=== PATIENT | female | born 1940 | race Caucasian/White ===

== ENCOUNTER 2021-05-22 16:26 | Inpatient (IN) | payer MEDICARE, BC, SELFPAY ==
[2021-05-22] VITALS (7 sets, daily range): BP systolic 147–159; BP diastolic 62–86; PULSE 79–107; RESP 14–20; TEMP 36.1–37.6; O2SAT 97–100; BMI 24.0
--- NOTE | ~2021-05-22 | CT_ITS ---
EXAMINATION: CT brain wo con DATE: 05/22/2021 17:14 INDICATION: Tongue swelling. Writing difficulties. TECHNIQUE: Computed tomography (CT) of the head was performed without intravenous contrast. The dose- length product was 605.33 mGy-cm. Automated exposure control and iterative reconstruction technique w ere employed. COMPARISON: CT dated 10/08/2009 FINDINGS: Mild atrophy. There are scattered moderate periventricular and subcortical white matter kim nges, most likely related to small vessel ischemic disease (microangiopathy). No acute intracranial h emorrhage, infarction, mass or mass effect. No ventriculomegaly or midline shift. Basilar cisterns ar e patent. Paranasal sinuses and mastoids are pneumatized. No depressed skull fractures. Small exostos is originating from the frontal skull. Small chronic right frontal lobe infarction. IMPRESSION: 1. No acute intracranial abnormality. 2: Chronic age-related findings. 3: Chronic right frontal lobe infarction. Reviewed, dictated and finalized at location A.
--- NOTE | ~2021-05-22 | MR_ITS ---
EXAMINATION: MR brain/brain stem wo/w con DATE: 05/23/2021 13:46 INDICATION: Transient ischemic attack. Slurred speech. Right hand weakness. TECHNIQUE: Magnetic resonance imaging (MRI) of the brain and brainstem was performed without and with 10 mL MultiHance intravenous contrast. Sequences included sagittal and axial T1-weighted FSE, axial diffusion-weighted FS EPI, axial T2*-weighted GRE, axial T2-weighted FLAIR Propeller, and axial T2-we ighted Propeller. Postcontrast sequences included axial and coronal T1-weighted FSE. Apparent diffusi on coefficient (ADC) maps were created. COMPARISON: Head CT 05/22/2021 FINDINGS: There is an acute infarct involving the left basal ganglia and internal capsule. There are scattered areas of nonspecific increased T2-weighted signal intensity in the cerebral white matter, p ons, and deep rowley nuclei. There is a small area of cystic encephalomalacia involving the right front al lobe deep white matter. The ventricles are normal in size. There is mild mucosal thickening in the ethmoid sinuses. There are likely changes of ocular lens replacement surgeries. The mastoid air cell s are normal. IMPRESSION: 1. Acute infarct involving the left basal ganglia and left internal capsule. 2. Small area of chronic cystic encephalomalacia involving right frontal lobe deep white matter. 3. Moderate nonspecific cerebral white matter disease and disease of the renea and deep rowley nuclei, w hich likely represents chronic small vessel ischemic disease. Reviewed, dictated and finalized at location A. IMPRESSION: 1. Acute infarct involving the left basal ganglia and left internal capsule. 2. Small area of chronic cystic encephalomalacia involving right frontal lobe d eep white matter. 3. Moderate nonspecific cerebral white matter disease and disease of the renea a nd deep rowley nuclei, which likely represents chronic small vessel ischemic dise ase.
--- NOTE | ~2021-05-22 | XR_ITS ---
EXAMINATION: XR chest 1V 05/22/2021 17:20 INDICATION: Slurred speech. History of breast and thyroid cancer. PROCEDURE: AP view of the chest COMPARISON: No prior studies for comparison. FINDINGS: The lungs are clear. The cardiomediastinal silhouette is within normal limits. There are no pleural effusions. There is no pneumothorax suspected. IMPRESSION: 1: NO ACUTE CARDIOPULMONARY DISEASE. Reviewed, dictated and finalized at location A.
--- NOTE | ~2021-05-22 | US_ITS ---
EXAMINATION: US carotid duplex BI DATE: 05/23/2021 14:08 INDICATION: Expressive aphasia. TECHNIQUE: Grayscale, color Doppler, and pulsed Doppler images of the cervical carotid arteries were obtained. The degree of vessel stenosis is placed in one of the following categories: normal, <50%, 5 0-69%, >=70% but less than near-occlusion, near-occlusion, or total occlusion. Note that percent sten osis relative to normal distal artery lumen diameter is indirectly measured from velocity measurement s as described by Lowell, et al. Radiology 2003; 229:340-346. COMPARISON: None. FINDINGS: RIGHT: The right common carotid artery (CCA) peak systolic velocity (PSV) is 102 cm/s. The right internal ca rotid artery (ICA) PSV is 83 cm/s. The right ICA end-diastolic velocity (EDV) is 26 cm/s. The right I CA/CCA PSV ratio is 0.8. Grayscale and color Doppler images yield an estimate of <50% diameter reduct ion from plaque in the ICA. There is antegrade flow in the right vertebral artery. LEFT: The left CCA PSV is 110 cm/s. The left ICA PSV is 84 cm/s. The left ICA EDV is 26 cm/s. The left ICA/ CCA PSV ratio is 0.8. Grayscale and color Doppler images yield an estimate of <50% diameter reduction from plaque in the ICA. There is antegrade flow in the left vertebral artery. IMPRESSION: 1. <50% stenosis in the right internal carotid artery. 2. <50% stenosis in the left internal carotid artery. Reviewed, dictated and finalized at location A.
--- NOTE | 2021-05-22 16:39 | ECG_ITS ---
Measurements Intervals [place] Rate: 100 P: 27 RI: 132 QRS: -18 QRSD: 94 T: 67 QT: 354 QTc: 458 Interpretive Statements SINUS TACHYCARDIA DELAYED PRECORDIAL R/S TRANSITION BASELINE ARTIFACT- I, II, III, AVR, AVL, AVF ABNORMAL ECG Electronically Signed On 05-22-2021 17:47:28 CDT by Jonas Rollins D.O.
[2021-05-22 17:00] LABS: Basophils Absolute Auto 0.1 K/mm3 (0.0-0.1); Basophils Percent Auto 0.5 % (0.2-1.2); Eosinophils Absolute Auto 0.3 K/mm3 (0-0.3); Eosinophils Percent Auto 3.2 % (0-4.4); Hematocrit 40.6 % (37.0-47.0); Hemoglobin 13.3 g/dL (12.0-15.0); Immature Granulocyte Absolute 0.03 K/mm3 (0.00-0.031); Immature Granulocyte Percent A 0.3 % (0-0.5); Lymphocytes Absolute Auto 3.77 K/mm3 (0.9-3.2); Lymphocytes Percent Auto 38.4 % (18.3-44.2); Mean Corpuscular HGB Conc 32.8 g/dl (32-36); Mean Corpuscular Hemoglobin 29.7 pg (26-34); Mean Corpuscular Volume 90.6 fl (80-100); Monocytes Absolute Auto 0.9 K/mm3 (0.1-0.6); Monocytes Percent Auto 9.2 % (2.6-8.5); Neutrophils Absolute Auto 4.8 K/mm3 (1.3-6.7); Neutrophils Percent Auto 48.4 % (45.5-73.1); Platelet Count Result 257 k/mm3 (150-375); Red Blood Count 4.48 M/mm3 (4.2-5.4); Red Cell Distribution Width 13.8 % (11.5-14.5); White Blood Count 9.8 K/mm3 (4.5-10.0)
[2021-05-22 17:09] LABS: Partial Thromboplastin Time 25.4 SECONDS (22.3-36.8); Prothrombin Time 13.2 Seconds (11.1-14.7)
--- NOTE | 2021-05-22 17:10 | PC.NURSE ---
Pt to CT scan at this time.
[2021-05-22 17:13] LABS: Anion Gap 10 mmol/L (8-16); Blood Urea Nitrogen 18 mg/dL (7-17); Calcium 9.9 mg/dL (8.4-10.2); Carbon Dioxide 25 mmol/L (22-30); Chloride 102 mmol/L (98-107); Estimated CRCL calculation 36 ml/min; Estimated Glomerular Filt Rate > 60; Glucose 127 mg/dL (65-105); Potassium 3.9 mmol/L (3.4-5.0); Sodium 137 mmol/L (137-145)
[2021-05-22 17:25] LABS: Troponin I < 0.012 ng/mL (0.000-0.034)
[2021-05-22 17:27] LABS: Glucose Point of Care 137 mg/dl (65-105)
--- NOTE | 2021-05-22 21:03 | ED.GENADULT ---
HPI - General Adult General Chief complaint: Neuro Symptoms/Deficit Stated complaint: slurred speech Time Seen by Provider: 05/22/21 20:50 Source: patient, family and RN notes reviewed Mode of arrival: ambulatory Limitations: no limitations History of Present Illness HPI narrative: Patient 80 years old white female presents to the ED with slurred speech, and trouble to manage right hand. Patient lives alone, her [id number] noticed that the patient have slurred speech while talking to her on the phone last night. Patient woke up this morning and felt like her tongue is a swollen, unable to articulate words, few hours later patient tried to sign some papers and noticed that her signature is weird . Currently patient is back to normal, denying any focal neuro deficits, headache, nausea, vomiting, fever, chills. Patient is fully vaccinated for COVID-19. Patient on baby aspirin once a day Related Data Allergies Allergy/AdvReac Type Severity Reaction Status Date / Time ibuprofen Allergy Severe FACIAL Verified 07/18/17 11:18 SWELLING mold Allergy Severe CARRIES Verified 07/18/17 11:18 EPIPEN diclofenac Allergy Intermediate Itching Verified 07/18/17 11:18 codeine Allergy Mild Verified 07/18/17 11:18 Review of Systems Review of Systems: Narrative: CONSTITUTIONAL: Denies fever, chills, or sweats. EYES: Denies visual changes, redness, or discharge. ENT: Denies rhinorrhea, congestion, sore throat, or otalgia. CARDIOVASCULAR: Denies chest pain, palpitations, or edema. RESPIRATORY: Denies cough or dyspnea. GASTROINTESTINAL: Denies abdominal pain, nausea, vomiting, or diarrhea. GENITOURINARY: Denies dysuria or hematuria. SKIN: Denies rash or itching. MUSCULOSKELETAL: Denies back pain, joint pain, or myalgia. NEUROLOGIC: Denies headache, numbness, or weakness. PSYCHIATRIC: Denies anxiety or depression. Exam Narrative: Exam Narrative: General appearance: Well-developed, well-nourished Skin: Normal color Head: Normocephalic, nontraumatic Eyes: Clear conjunctiva ENT: Oropharynx normal, ears normal, nose normal Neck: Supple, nontender Chest and respiratory: Airway patent, no respiratory distress, no accessory muscle use Heart: Regular rate/rhythm Abdomen: Soft, nontender, no organomegaly, quiet bowel sounds Vascular: Normal peripheral pulses, normal capillary refill. Musculoskeletal: Normal range of motion, nontender back Neurologic: Alert and oriented ?3, [employer]PERATOR is normal as tested, no gross motor deficit Course Course Emergency Course: Resolved, stable Vital Signs Vital signs: Vital Signs Temperature 37.6 C 05/22/21 16:30 Pulse Rate 107 H 05/22/21 16:30 Respiratory Rate 16 05/22/21 16:30 Blood Pressure 159/86 H 05/22/21 16:30 Pulse Oximetry 100 05/22/21 16:30 Temperature 37.6 C 05/22/21 16:30 Pulse Rate 89 05/22/21 19:16 Respiratory Rate 14 05/22/21 19:16 Blood Pressure 150/70 H 05/22/21 19:16 Pulse Oximetry 97 05/22/21 17:26 Medical Decision Making MDM Narrative Medical decision making narrative: TIA is my concern. Labs, CT head, chest x-ray, EKG ordered. Further plan to follow Differential Diagnosis Differential Diagnosis: TIA, CVA Vital Signs Vital Signs: Vital Signs Temperature 37.6 C 05/22/21 16:30 Pulse Rate 107 H 05/22/21 16:30 Respiratory Rate 16 05/22/21 16:30 Blood Pressure 159/86 H 05/22/21 16:30 Pulse Oximetry 100 05/22/21 16:30 Temperature 37.6 C 05/22/21 16:30 Pulse Rate 89 05/22/21 19:16 Respiratory Rate 14 05/22/21 19:16 Blood Pressure 150/70 H 05/22/21 19:16 Pulse Oximetry 97 05/22/21 17:26 Lab Data Result diagrams: 05/22/21 16:45
[2021-05-22] MEDS: ASPIRIN 81 MG CHEWABLE TABLET 324 MG PO (21:55)
--- NOTE | 2021-05-22 22:20 | ADMGEN ---
This patient, Grisel No, was admitted to Medical Room 344-01. Patient/family oriented to hospital policies and general routines including ID bracelet, bed and alarms, visiting hours, pain management, procedures, bathroom and other care routines, personal items, smoking policy, room service/diet, and visiting hours. Information on how to activate the Rapid Response Team has been discussed. Patient/Family are encouraged to report perceived risks to care and to ask questions if they do not understand what they are told or what they should do.
[2021-05-23] VITALS (7 sets, daily range): BP systolic 148–155; BP diastolic 64; PULSE 70–90; RESP 16; TEMP 36.1; O2SAT 97–99
--- NOTE | 2021-05-23 | ECHO_ITS ---
Patient Info Name: Grisel No Age: 80 years : 1940 Gender: Female Ht: 62 in Wt: 131 lbs BSA: 1.62 m2 HR: 80 bpm BP: 148 / 64 mmHg Heart Rhythm: Sinus Rhythm Technical Quality: Good Exam Date: 05/23/2021 9:41 AM Exam Location: [facility] Pulmonary Exam Room: 344 Patient Status: Inpatient Admit Date: 05/22/2021 Staff Ordering Physician: Belkis Correa PA-C Zoo Director: Katharina Israel RDCS Attending Provider: Belkis Correa PA-C Referring Physician: Madeline SIMS; Exam Type: CA echo doppler w bubble study Study Info Indications - tia symptoms Complete two-dimensional, color flow and Doppler transthoracic echocardiogram is performed with agitated saline. Contrast/Agitated Saline Contrast/Ag. Saline: Agitated Saline Amount: 20.00 ml Administered By: Farrah Avery RN Existing IV Access: Yes IV Access Condition: patent with no signs of infiltration Summary 1. Left ventricular chamber size, wall thickness, systolic are normal with no regional wall motion abnormalities with an estimated ejection fraction of 60-65%. Grade 1 diastolic dysfunction is present. 2. Mild pulmonary hypertension, estimated pulmonary arterial systolic pressure is 38 mmHg. 3. Bubble study shows no evidence of intracardiac shunt during normal respiration and Valsalva maneuver. 4. No significant valve disease. 5. Normal sinus rhythm. Left Ventricle Left ventricular chamber dimension is normal. Left ventricular systolic function is normal, estimated at 60-65%. There is no increased left ventricular wall thickness. Left ventricular septal wall motion is normal. The left ventricular diastolic function is grade I diastolic dysfunction. Left ventricular chamber size, wall thickness, systolic are normal with no regional wall motion abnormalities with an estimated ejection fraction of 60-65%. Grade 1 diastolic dysfunction is present. Right Ventricle Right ventricular chamber dimension is normal. Right ventricular systolic function is normal. Left Atria Left atrial chamber dimension is mildly enlarged. Right Atria Right atrial chamber dimension is normal. Aortic Valve The aortic valve is trileaflet. There is no aortic valve sclerosis. There is no aortic valve stenosis. There is no aortic valve regurgitation. Pulmonic Valve The pulmonic valve is normal. There is no pulmonic valve stenosis. There is trace pulmonic regurgitation. Mitral Valve The mitral valve has normal leaflets. There is no mitral valve stenosis. There is trace mitral valve regurgitation. Tricuspid Valve The tricuspid valve leaflets are normal. There is no significant tricuspid valve stenosis. There is trace tricuspid valve regurgitation. Mild pulmonary hypertension, estimated pulmonary arterial systolic pressure is 38 mmHg. Pericardium/Pleural The pericardium appears normal. There is no pericardial effusion. Inferior Vena Cava Normal inferior vena cava with >50% collapse upon inspiration consistent with Empty right atrial pressure, 10 mmHg. Aorta The aortic root size at the sinus of Valsalva is normal. The prox ascending aorta size is normal. Left Ventricular Outflow Tract Name Value Normal LVOT 2D
[2021-05-23] MEDS: LEVOTHYROXINE SODIUM 100 MCG TABLET PO (05:54)
[2021-05-23] MEDS: LORATADINE 10 MG TABLET PO (09:00)
[2021-05-23] MEDS: ATORVASTATIN 10 MG TABLET PO (09:00)
[2021-05-23] MEDS: ASPIRIN 81 MG ENTERIC TABLET PO (09:00)
[2021-05-23] MEDS: lisinopriL 20 MG TABLET PO (09:00)
[2021-05-23] MEDS: FLUTICASONE PROPIONATE 0.05% NA SPR 16 GM BTL (*BKC) 2 SPRAY NASAL (09:00)
--- NOTE | 2021-05-23 09:34 | PC.NURSE ---
message left at [facility] medical records to inquire about procedures to see if they are MRI compatible
[2021-05-23 12:10] LABS: Cholesterol 128 mg/dL (0-200); HDL Direct 40 mg/dL; Triglycerides 114 mg/dL (<150)
[2021-05-23 12:21] LABS: LDL Cholesterol Direct 62 mg/dL
--- NOTE | 2021-05-23 16:53 | PM.SD2 ---
Same Day Admit/Disch: HPI History of Present Illness Chief complaint: TIA Narrative: Grisel No is a 80 year old female with a history of dyslipidemia, thyroid cancer status post resection in on levothyroxine, hypertension, who presented to the emergency room with symptoms of slurred speech, unable to articulate words, and noticed that her signature was off while signing papers. she states her [id number] in a noticed her slurred speech on 05/21/2021 evening while they were on the phone. She went to bed without any concerns. When she woke up, she had noticed some trouble articulating certain words in a few hours later she was sign some papers and noticed her signature was off. She came to the ER for further evaluation workup. Initial vitals showed she was afebrile, slightly tachycardic at 107 per, respiratory rate 16, blood pressure 159/86, normal oxygenation 100% on room air. Initial labs showed normal CBC with differential, normal coag panel, normal BMP other than slightly elevated glucose at 127, negative troponin. CT head showed no acute intracranial abnormality, chronic age-related findings, chronic right frontal lobe Infarction. Chest x-ray showed no acute cardiopulmonary disease. the patient was admitted into the hospital for further workup and evaluation of possible stroke with an echocardiogram, MRI, telemetry monitoring and carotid Dopplers. The patient's MRI showed Acute infarct involving the left basal ganglia and left internal capsule. Small area of chronic cystic encephalomalacia involving right frontal lobe deep white matter. Moderate nonspecific cerebral white matter disease and disease of the renea and deep rowley nuclei, which likely represents chronic small vessel ischemic disease. carotid Doppler ultrasound showed less than 50% stenosis of bilateral internal carotid arteries. Echocardiogram showed normal EF 60-65%, grade 1 diastolic dysfunction, mild pulmonary hypertension, bubble study shows no evidence of intracardiac shunt and no significant valve disease. Telemetry showed normal sinus rhythm with a heart rate of 78 beats per minute, 3 alarms showing a tachycardic episode, no acute arrhythmia noted. Patient's lipid panel was normal. The patient was seen by occupational therapy who discharged her since she was at her baseline, patient still felt like her signature was off. Speech therapy evaluated the patient and found to have mild dysarthria characterized as mild labial/ lingual weakness not observed during oral motor movements but discovered during rapid repetition of speech sounds. due to acute stroke I continued the patient's baby aspirin as started her on Plavix for 28 days. I called her primary care provider Dr Shira Hall who will continue follow the patient up in a week of discharge and told him that after 28 days of Plavix he will have to decide which monotherapy to continue. Since she was on atorvastatin 10 mg she will be switched to 40 mg high dose due to acute stroke. Explained that she may need a Holter monitor to rule out any arrhythmia. he understands and agrees with the plan all questions answered. I also ordered speech therapy as an outpatient for her to follow-up to continue working on the weakness after her stroke. The patient understands and agrees with the plan all questions answered. She is discharged in stable condition. PMFSH Past Medical History Medical History (Updated 05/24/21 @ 08:12 by Belkis Correa PA-C) HLD (hyperlipidemia) HX: breast cancer Hypothyroidism Osteoporosis Seasonal allergies Thyroid cancer Family History Family History Father Lung cancer Heart disease Sibling Heart attack Son Lymphoma, Onset Age: 31 Mother Heart attack Cerebrovascular accident Social History Social History (Updated 05/24/21 @ 08:12 by Belkis Correa PA-C) Smoking status: N
== END 2021-05-23 19:36 | disposition home or self-care (01) | DRG 66 ==
LOC: ANHED 21:08 → ANH3MED 22:01
PROVIDERS: Admitting Provider Internal Medicine; Emergency Provider Emergency Medicine; PCP Family Medicine Sports Medicine; Visit Provider Physician Assistant
DX: I63.9 Cerebral infarction, unspecified (principal); R47.81 Slurred speech; R47.1 Dysarthria and anarthria; R29.700 NIHSS score 0; E78.5 Hyperlipidemia, unspecified; I10 Essential (primary) hypertension; E03.9 Hypothyroidism, unspecified; M81.0 Age-related osteoporosis without current pathological fracture; Z85.850 Personal history of malignant neoplasm of thyroid; Z85.3 Personal history of malignant neoplasm of breast
CPT/HCPCS: 36415; 70450; 70553; 71045; 80048; 80061; 82948; 84484; 85025; 85610; 85730; 92523; 93005; 93306; 93880; 96375; 99285; A9270; A9577

== ENCOUNTER 2021-06-03 08:49 | Emergency (ER) | payer BC, SELFPAY ==
--- NOTE | ~2021-06-03 | CT_ITS ---
EXAMINATION: CT chest abdomen pelvis w con DATE: 06/03/2021 10:18 INDICATION: Leukocytosis, GI bleeding TECHNIQUE: Transaxial computed tomographic images of the chest, abdomen, and pelvis were obtained aft er the administration of 100 cc of Omnipaque 350 intravenous contrast. The dose-length product (DLP) was 305.15 mGy-cm. Automated exposure control and iterative reconstruction technique were employed. COMPARISON: None FINDINGS: CHEST CT: There are scattered 1 to 2 mm nodules throughout the lungs. No focal airspace opacity is identified. There is no pleural effusion or pneumothorax. No pathologically enlarged thoracic lymph nodes are tracey ntified. The heart size is normal. Surgical changes in the left breast are consistent with treatment for breast cancer. 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 There is mild thoracic spondylosis. ABDOMEN/PELVIS CT: There is circumferential wall thickening of the descending and proximal sigmoid colon. The liver, spl een, pancreas, gallbladder, and adrenal glands are normal. The kidneys are unremarkable. No pathologi gold enlarged abdominal or pelvic lymph nodes are identified. There is no free intraperitoneal gas o r evidence of bowel obstruction. There is calcified atherosclerosis of the aorta and many of the othe r arteries. There is mild lumbar spondylosis. IMPRESSION: 1. Findings consistent with acute colitis of the descending and proximal sigmoid colon. 2. No acute findings in the chest. Reviewed, dictated and finalized at location A. IMPRESSION: 1. Findings consistent with acute colitis of the descending and proximal sigmoi d colon. 2. No acute findings in the chest.
[2021-06-03 08:53] VITALS: BP 162/81; PULSE 85; RESP 16; O2SAT 100
--- NOTE | 2021-06-03 09:09 | ED.GIBLEED ---
HPI - GI Bleed General Chief complaint: GI Bleed Stated complaint: BLOOD IN STOOL Time Seen by Provider: 06/03/21 08:51 History of Present Illness HPI Narrative: 80 yo female presents from home for Rectal bleeding. She reports that she had cramping abdominal pain and diarrhea starting last night. Overnight the diarrhea became grossly bloody. This morning the pain and diarrhea seems to have subsided, but she continues to pass a small amount of blood per rectum when she passed gas. She denies any additional symptoms. She was started on plavix recent for a stroke/TIA. Related Data Home Medications Medication Instructions Recorded Confirmed Baby Aspirin 81 mg PO DAILY 05/22/21 05/22/21 Osteo Bi-Flex 1 tablet PO DAILY 05/22/21 05/22/21 Zyrtec 10 mg PO DAILY 05/22/21 05/22/21 fluticasone propionate 2 spray INTRANASAL DAILY 05/22/21 05/22/21 levothyroxine 100 mcg PO DAILY 05/22/21 05/22/21 lisinopril 20 mg PO DAILY 05/22/21 05/22/21 metoprolol succinate 50 mg PO HS 05/22/21 05/22/21 Allergies Allergy/AdvReac Type Severity Reaction Status Date / Time ibuprofen Allergy Severe FACIAL Verified 06/03/21 09:00 SWELLING mold Allergy Severe CARRIES Verified 06/03/21 09:00 EPIPEN diclofenac Allergy Intermediate Itching Verified 06/03/21 09:00 codeine AdvReac Mild Headache Verified 06/03/21 09:00 Review of Systems Review of Systems: All systems reviewed & are unremarkable except as noted in HPI and below Constitutional: Constitutional: Denies chills and Denies fever(s) Cardiovascular: Cardiovascular: Denies chest pain Respiratory: Respiratory: Denies dyspnea Gastrointestinal: Gastrointestinal: Reports abdominal pain, Reports diarrhea, Denies nausea and Denies vomiting Genitourinary: Genitourinary: Denies hematuria and Denies dysuria Musculoskeletal: Musculoskeletal: Denies back pain Neurologic: Denies confusion, Denies dizziness, Denies numbness and Denies weakness [facility] Past Medical History Medical History HLD (hyperlipidemia) HX: breast cancer Hypothyroidism Osteoporosis Seasonal allergies Thyroid cancer Family History Family History Father Lung cancer Heart disease Sibling Heart attack Son Lymphoma, Onset Age: 31 Mother Heart attack Cerebrovascular accident Social History Social History Smoking status: Never smoker Second hand tobacco smoke exposure: No Alcohol intake: current Drinks per week: 1 Substance use: never Gender identity (if verbalized by the patient): Female Spiritual care concerns: No Exam Const: General: no acute distress Orientation/consciousness: patient oriented x3 HENMT: Head: normal to inspection Neck: Neck: normal visual inspection Resp: Effort & Inspection: normal respiratory effort Auscultation: clear to auscultation bilaterally, no rales, no rhonchi and no wheezes Cardio: Jugular venous distension: no JVD Rate: regular rate Rhythm: regular rhythm Heart sounds: no murmurs GI: Inspection: non-distended GI Palp: Yes Soft to palpation and No Tenderness to palpation present (GI) Skin: General skin exam: normal color Neuro: General: patient oriented x3 and moves all extremities Speech: normal speech Extrem: General: normal to inspection and no edema Psych: Appearance: well kempt Affect: normal affect Course Vital Signs Vital signs: Vital Signs Pulse Rate 85 06/03/21 08:53 Respiratory Rate 16 06/03/21 08:53 Blood Pressure 162/81 H 06/03/21 08:53 Pulse Oximetry 100 06/03/21 08:53 Pulse Rate 84 06/03/21 11:40 Respiratory Rate 14 06/03/21 11:40 Blood Pressure 131/73 06/03/21 11:40 Pulse Oximetry 99 06/03/21 11:40 MDM - GI Bleed MDM Narrative Medical decision making narrative: H/H stable. Symptoms nearly completely resolved. CT o
[2021-06-03] MEDS: PANTOPRAZOLE SODIUM IV 40 MG VIAL IV PUSH (09:21)
[2021-06-03 09:39] LABS: Alanine Aminotransferase 27 U/L (4-35); Albumin Level 4.3 g/dL (3.5-5.1); Alkaline Phosphatase 74 U/L (38-126); Anion Gap 10 mmol/L (8-16); Aspartate Amino Transferase 35 U/L (14-36); Blood Urea Nitrogen 12 mg/dL (7-17); Calcium 9.4 mg/dL (8.4-10.2); Carbon Dioxide 24 mmol/L (22-30); Chloride 104 mmol/L (98-107); Estimated CRCL calculation 36 ml/min; Estimated Glomerular Filt Rate > 60; Glucose 158 mg/dL (65-110); Lipase 64 U/L (23-300); Potassium 3.9 mmol/L (3.4-5.0); Sodium 138 mmol/L (137-145)
[2021-06-03 09:47] LABS: Basophils Absolute Auto 0.1 K/mm3 (0.0-0.1); Basophils Percent Auto 0.4 % (0.2-1.2); Eosinophils Absolute Auto 0.1 K/mm3 (0-0.3); Eosinophils Percent Auto 0.7 % (0-4.4); Hematocrit 41.6 % (37.0-47.0); Hemoglobin 13.2 g/dL (12.0-15.0); Immature Granulocyte Absolute 0.09 K/mm3 (0.00-0.031); Immature Granulocyte Percent A 0.5 % (0-0.5); Lymphocytes Absolute Auto 2.62 K/mm3 (0.9-3.2); Lymphocytes Percent Auto 15.2 % (18.3-44.2); Mean Corpuscular HGB Conc 31.7 g/dl (32-36); Mean Corpuscular Hemoglobin 29.3 pg (26-34); Mean Corpuscular Volume 92.4 fl (80-100); Mean Platelet Volume 12.1 fl (7.4-10.4); Monocytes Absolute Auto 1.4 K/mm3 (0.1-0.6); Neutrophils Percent Auto 75.2 % (45.5-73.1); Platelet Count Result 236 k/mm3 (150-375); Red Cell Distribution Width 13.4 % (11.5-14.5); White Blood Count 17.3 K/mm3 (4.5-10.0)
[2021-06-03 10:29] LABS: Prothrombin Time 12.8 Seconds (11.1-14.7)
[2021-06-03 10:30] LABS: Partial Thromboplastin Time 26.6 SECONDS (22.3-36.8)
[2021-06-03] MEDS: metroNIDAZOLE 250 MG TABLET 500 MG PO (11:09)
[2021-06-03 11:10] VITALS: BP 131/73; PULSE 90; RESP 16; O2SAT 100
[2021-06-03] MEDS: CIPROFLOXACIN 500 MG TAB PO (11:10)
[2021-06-03 11:40] VITALS: BP 131/73; PULSE 84; RESP 14; O2SAT 99
== END 2021-06-03 11:35 | disposition home or self-care (01) ==
PROVIDERS: Emergency Provider Emergency Medicine; PCP Family Medicine Sports Medicine
DX: K52.9 Noninfective gastroenteritis and colitis, unspecified (principal); E78.5 Hyperlipidemia, unspecified; E03.9 Hypothyroidism, unspecified; M81.0 Age-related osteoporosis without current pathological fracture; Z85.850 Personal history of malignant neoplasm of thyroid; Z85.3 Personal history of malignant neoplasm of breast; Z79.82 Long term (current) use of aspirin
CPT/HCPCS: 36415; 71260; 74177; 80053; 83690; 85025; 85610; 85730; 86850; 86900; 86901; 96374; 99284; A9270; C9113; Q9967

== ENCOUNTER 2021-06-20 05:24 | Observation (INO) | payer BC, SELFPAY ==
[2021-06-20] VITALS (12 sets, daily range): BP systolic 108–140; BP diastolic 48–91; PULSE 79–107; RESP 14–18; TEMP 35.7–37.3; O2SAT 96–99
--- NOTE | ~2021-06-20 | CT_ITS ---
EXAMINATION: CT abdomen pelvis w con INDICATION: Right lower abdominal pain and diarrhea TECHNIQUE: Computed tomographic images of the abdomen and pelvis were obtained after the administrati on of 100 cc of Omnipaque 350 intravenous contrast. The dose-length product (DLP) was 214.00 mGy-cm. Automated exposure control and iterative reconstruction technique were employed. COMPARISON: 06/03/2021 FINDINGS: The lung bases are clear. The heart size is normal. The liver, spleen, pancreas, gallbladde r, and adrenal glands are normal. The kidneys are unremarkable. There is calcified atherosclerosis of the aorta and many of the other arteries. No pathologically enlarged abdominal or pelvic lymph nodes are identified. There is diffuse wall thickening of the colon, worst from the splenic flexure throug h the rectum. There is mild lumbar spondylosis. There is no free intraperitoneal gas or evidence of b owel obstruction. IMPRESSION: 1. Diffuse wall thickening of the colon, worst from the splenic flexure through the rectum, consisten t with colitis. Reviewed, dictated and finalized at location A. IMPRESSION: 1. Diffuse wall thickening of the colon, worst from the splenic flexure through the rectum, consistent with colitis.
[2021-06-20 07:54] LABS: Hematocrit 38.1 % (37.0-47.0); Hemoglobin 12.4 g/dL (12.0-15.0); Mean Corpuscular HGB Conc 32.5 g/dl (32-36); Mean Corpuscular Hemoglobin 29.5 pg (26-34); Mean Corpuscular Volume 90.7 fl (80-100); Mean Platelet Volume 11.1 fl (7.4-10.4); Platelet Count Result 215 k/mm3 (150-375); Red Cell Distribution Width 13.9 % (11.5-14.5); White Blood Count 16.8 K/mm3 (4.5-10.0)
--- NOTE | 2021-06-20 08:09 | ED.NAVMDI ---
HPI - Nausea/Vomiting/Diarrhea General Chief complaint: Nausea/Vomiting/Diarrhea Stated complaint: diarrhea, hx of colitis Time Seen by Provider: 06/20/21 07:08 Source: patient, RN notes reviewed and old records reviewed Mode of arrival: ambulatory Limitations: no limitations History of Present Illness HPI Narrative: This is a 80 year old female who presents for evaluation of diarrhea. She states 2-3 weeks ago she developed bloody stools so she came to [facility], and she was diagnosed with colitis. She was discharged home on Cipro and Flagyl. She states her bloody stools have resolved but 2 days after completing her antibiotics her stools became loose again. Over the past 2 days, she reports she is having multiple episodes of watery, nonbloody stools. She reports up to 10 episodes of diarrhea per day. She took Imodium prior to arrival so she is not having diarrhea currently. She denies abdominal pain,fever or chills. She does reports weakness with nausea and vomiting. She denies sick contacts. Her PCP has referred patient to GI at [place], but her appointment is not until July. She reports having an unremarkable colonoscopy 5 years ago. Related Data Home Medications Medication Instructions Recorded Confirmed Baby Aspirin 81 mg PO DAILY 05/22/21 06/20/21 Osteo Bi-Flex 1 tablet PO DAILY 05/22/21 06/20/21 fluticasone propionate 2 spray INTRANASAL DAILY 05/22/21 06/20/21 levothyroxine 100 mcg PO DAILY 05/22/21 06/20/21 lisinopril 20 mg PO DAILY 05/22/21 06/20/21 metoprolol succinate 50 mg PO HS 05/22/21 06/20/21 Norvasc 5 mg PO DAILY 06/20/21 06/20/21 Allergies Allergy/AdvReac Type Severity Reaction Status Date / Time ibuprofen Allergy Severe FACIAL Verified 06/03/21 09:00 SWELLING mold Allergy Severe CARRIES Verified 06/03/21 09:00 EPIPEN diclofenac Allergy Intermediate Itching Verified 06/03/21 09:00 codeine AdvReac Mild Headache Verified 06/03/21 09:00 Review of Systems Review of Systems: All systems reviewed & are unremarkable except as noted in HPI and below PMFSH Past Medical History Medical History (Updated 06/20/21 @ 16:36 by Kaylie Lindsay MD) HLD (hyperlipidemia) HX: breast cancer Hypothyroidism Osteoporosis Seasonal allergies Thyroid cancer Surgical History Surgical History (Updated 06/20/21 @ 08:14 by Kaylie Lindsay MD) H/O mastectomy Family History Family History Father Lung cancer Heart disease Sibling Heart attack Son Lymphoma, Onset Age: 31 Mother Heart attack Cerebrovascular accident Social History Social History Smoking status: Never smoker Second hand tobacco smoke exposure: No Alcohol intake: never Drinks per week: 1 Substance use: never Gender identity (if verbalized by the patient): Female Spiritual care concerns: No Exam Const: General: alert Eyes: EOM: EOMs intact bilaterally Resp: Effort & Inspection: normal respiratory effort and no retractions Auscultation: clear to auscultation bilaterally Cardio: Rate: regular rate Rhythm: regular rhythm Heart sounds: no murmurs GI: GI Palp: Yes Soft to palpation, Yes Tenderness to palpation present (GI) (RLQ), No Guarding due to palpation present (GI) and No Rigid due to palpation Auscultation: normal bowel sounds Skin: General skin exam: normal color Rashes: no rashes Neuro: General: patient oriented x3, moves all extremities and CN's II-XI intact bilaterally Psych: Mental Status: mental status grossly normal Affect: normal affect Course Consultations Consultation #1: I Discussed case with DR. Lopez who accepts patient to hospitalist service. Agrees with antibiotics zosyn with oral vanc. No further recommendations. Date: 06/20/21 Time: 10:20 Vital Signs Vital signs: Vital Signs Temperature 99.1 F 06/20/21 05:29 Pulse Rate 107 H 08/0
[2021-06-20 08:11] LABS: Band Neutrophils Percent 7 % (0-6); Lymphocytes Absolute Manual 3.19 K/mm3 (1.1-4.5); Monocytes Absolute Manual 1.34 K/mm3 (0.1-0.90); Monocytes Percent Manual 8 % (3-9); Neutrophils Absolute Manual 12.26 K/mm3 (1.7-7.2); Neutrophils Percent Manual 66 % (46-73); Platelet Estimate Adequate (Adequate); Total Cells Counted 100
[2021-06-20 08:58] LABS: Add Urine Microscopic? YES; Appearance Urine Cloudy (Clear); Bacteria Urine Trace /hpf; Bilirubin Urine 1+ (Negative); Blood Urine Negative (Negative); Color Urine Amber (Yellow); Glucose Urine UA Negative (Negative); Hyaline Casts Urine 50+ /lpf; Ketones Urine Trace mg/dL (Negative); Leukocyte Esterase Ur Negative LEU/UL (Negative); Mucus Urine Moderate /lpf; Nitrate Urine Negative (Negative); Protein Urine 1+ mg/dL (Negative); RBC Urine 0-2 /hpf (0-2); Specific Grav Ur 1.021 (1.001-1.035); Squamous Epithelial Cell Urine Few /hpf (Few); Urobilinogen Urine Negative mg/dL (<2.0)
[2021-06-20 08:58] LABS: Alanine Aminotransferase 23 U/L (4-35); Albumin Level 3.5 g/dL (3.5-5.1); Alkaline Phosphatase 55 U/L (38-126); Anion Gap 13 mmol/L (8-16); Aspartate Amino Transferase 22 U/L (14-36); Bilirubin,Total 0.8 mg/dL (0.2-1.3); Blood Urea Nitrogen 14 mg/dL (7-17); Calcium 8.7 mg/dL (8.4-10.2); Carbon Dioxide 22 mmol/L (22-30); Chloride 98 mmol/L (98-107); Estimated CRCL calculation 27 ml/min; Estimated Glomerular Filt Rate 43; Glucose 124 mg/dL (65-110); Potassium 3.7 mmol/L (3.4-5.0); Sodium 133 mmol/L (137-145)
[2021-06-20 08:59] LABS: Lipase < 10 U/L (23-300)
[2021-06-20] MEDS: LACTATED RINGERS 1,000 ML 999 ML IV CONT ×2 (09:04→10:26)
[2021-06-20 10:23] LABS: Lactic Acid Reflex 2.6 mmol/L (0.7-2.1)
[2021-06-20] MEDS: VANCOMYCIN ORAL 125 MG/2.5 ML SYRUP PO ×3 (10:55→23:34)
[2021-06-20 13:08] LABS: Reflex Lactic Acid Yes or No Add Lactic
[2021-06-20] MEDS: SODIUM CHLORIDE 0.9% IV 1,000 ML 125 ML IV CONT ×2 (13:21→22:10)
[2021-06-20 13:31] LABS: Lactic Acid 1.8 mmol/L (0.7-2.1)
--- NOTE | 2021-06-20 16:22 | ADMGEN ---
This patient, Grisel No, was admitted to [address] [place] [address] Room [facility] at 1320 pm omn 06/20/21. Patient/family oriented to hospital policies and general routines including ID bracelet, bed and alarms, visiting hours, pain management, procedures, bathroom and other care routines, personal items, smoking policy, room service/diet, and visiting hours. Information on how to activate the Rapid Response Team has been discussed. Patient/Family are encouraged to report perceived risks to care and to ask questions if they do not understand what they are told or what they should do.
--- NOTE | 2021-06-20 16:26 | PM.IMHP ---
H&P: HPI History of Present Illness Date/Time: 06/20/21 16:26 Patient is 80-year-old female was recently discharged from the hospital after being treated for bloody diarrhea and was treated for colitis Patient was treated with Cipro and Flagyl, prior to discharge patient did not have any bloody stool, patient stated see completed her antibiotics 2 days ago and developed abdominal pain and diarrhea, no bloody stool, no fever or chills, complains abdominal pain and nausea, it was suspected the patient may have Colitis and patient was started Cipro and Flagyl and suspicious for C diff and started the patient on oral vancomycin, will place the patient on isolation and will monitor. Chief Complaint: abdominal pain and diarrhea Review of Systems Review of Systems: All systems reviewed & are unremarkable except as noted in HPI and below PMFSH Past Medical History Medical History (Updated 06/21/21 @ 14:02 by Ryan Lopez MD) HLD (hyperlipidemia) HX: breast cancer Hypothyroidism Osteoporosis Seasonal allergies Thyroid cancer Surgical History Surgical History (Updated 06/20/21 @ 08:14 by Kaylie Lindsay MD) H/O mastectomy Family History Family History Father Lung cancer Heart disease Sibling Heart attack Son Lymphoma, Onset Age: 31 Mother Heart attack Cerebrovascular accident Social History Social History Smoking status: Never smoker Second hand tobacco smoke exposure: No Alcohol intake: never Drinks per week: 1 Substance use: never Gender identity (if verbalized by the patient): Female Spiritual care concerns: No Meds Home Medications and Allergies Home Medications Medication Instructions Recorded Confirmed Type Baby Aspirin 81 mg PO DAILY 05/22/21 06/20/21 History Osteo Bi-Flex 1 tablet PO DAILY 05/22/21 06/20/21 History fluticasone propionate 2 spray INTRANASAL DAILY 05/22/21 06/20/21 History levothyroxine 100 mcg PO DAILY 05/22/21 06/20/21 History lisinopril 20 mg PO DAILY 05/22/21 06/20/21 History metoprolol succinate 50 mg PO HS 05/22/21 06/20/21 History atorvastatin [Lipitor] 40 mg PO DAILY #30 tablet 05/23/21 06/20/21 Rx clopidogrel [Plavix] 75 mg PO DAILY #28 tablet 05/23/21 06/20/21 Rx Norvasc 5 mg PO DAILY 06/20/21 06/20/21 History Allergies Allergy/AdvReac Type Severity Reaction Status Date / Time ibuprofen Allergy Severe FACIAL Verified 06/03/21 09:00 SWELLING mold Allergy Severe CARRIES Verified 06/03/21 09:00 EPIPEN diclofenac Allergy Intermediate Itching Verified 06/03/21 09:00 codeine AdvReac Mild Headache Verified 06/03/21 09:00 Vital Signs Vital Signs - 24 hr 06/20/21 05:29 06/20/21 09:07 06/20/21 10:19 Temperature 99.1 F Pulse Rate 107 H 81 80 Respiratory Rate 16 14 14 Blood Pressure 125/48 L 108/70 116/69 Pulse Oximetry 98 99 99 06/20/21 10:46 06/20/21 10:48 06/20/21 10:51 Temperature Pulse Rate 86 89 98 Respiratory Rate Blood Pressure 124/60 132/62 136/65 Pulse Oximetry 06/20/21 11:16 06/20/21 13:24 06/20/21 14:00 Temperature 96.2 F L 96.7 F L Pulse Rate 85 88 79 Respiratory Rate 14 18 18 Blood Pressure 117/61 138/57 L 114/49 L Pulse Oximetry 98 99 98 Exam Narrative: elderly frail Patient is comfortable, NAD HEENT: eyes are clear and none icteric LUNGS: normal respiratory efforts ABD: not distended Lower extremities: no edema SKIN: nonjaundiced Neuro: grossly intact normal speech. H&P: Results Labs Labs: Short CBC 06/20/21 Range/Units 07:48 WBC 16.8 H (4.5-10.0) K/mm3 Hgb 12.4 (12.0-15.0) g/dL Hct 38.1 (37.0-47.0) % Plt Count 215 (150-375) k/mm3 BMP 06/20/21 07:48 Sodium 133 L Potassium 3.7 Chloride 98 Carbon Dioxide 22 BUN 14 Creatinine 1.20 H Glucose 124 H Calcium 8.7 Liver Function 06/20/21 Range/Units 07:48 Tot
[2021-06-20] MEDS: METOPROLOL SUCCINATE EXT REL 50 MG TABCR PO (20:53)
[2021-06-21] MEDS: LEVOTHYROXINE SODIUM 100 MCG TABLET PO (05:15)
[2021-06-21] MEDS: VANCOMYCIN ORAL 125 MG/2.5 ML SYRUP PO (05:16)
[2021-06-21 05:19] VITALS: BP 136/61; PULSE 75; RESP 16; TEMP 36.3; O2SAT 96
[2021-06-21 06:08] LABS: Basophils Percent Auto 0.5 % (0.2-1.2); Eosinophils Absolute Auto 0.3 K/mm3 (0-0.3); Eosinophils Percent Auto 3.5 % (0-4.4); Hematocrit 31.9 % (37.0-47.0); Hemoglobin 10.1 g/dL (12.0-15.0); Immature Granulocyte Absolute 0.05 K/mm3 (0.00-0.031); Immature Granulocyte Percent A 0.6 % (0-0.5); Lymphocytes Absolute Auto 2.17 K/mm3 (0.9-3.2); Lymphocytes Percent Auto 24.7 % (18.3-44.2); Mean Corpuscular HGB Conc 31.7 g/dl (32-36); Mean Corpuscular Hemoglobin 29.5 pg (26-34); Mean Corpuscular Volume 93.3 fl (80-100); Mean Platelet Volume 11.2 fl (7.4-10.4); Monocytes Absolute Auto 0.7 K/mm3 (0.1-0.6); Monocytes Percent Auto 8.1 % (2.6-8.5); Neutrophils Absolute Auto 5.5 K/mm3 (1.3-6.7); Neutrophils Percent Auto 62.6 % (45.5-73.1); Platelet Count Result 152 k/mm3 (150-375); Red Blood Count 3.42 M/mm3 (4.2-5.4); Red Cell Distribution Width 13.8 % (11.5-14.5); White Blood Count 8.8 K/mm3 (4.5-10.0)
[2021-06-21 06:32] LABS: Alanine Aminotransferase 15 U/L (4-35); Albumin Level 2.4 g/dL (3.5-5.1); Alkaline Phosphatase 39 U/L (38-126); Anion Gap 4 mmol/L (8-16); Aspartate Amino Transferase 19 U/L (14-36); Bilirubin,Total 0.7 mg/dL (0.2-1.3); Blood Urea Nitrogen 7 mg/dL (7-17); Calcium 7.7 mg/dL (8.4-10.2); Carbon Dioxide 26 mmol/L (22-30); Chloride 107 mmol/L (98-107); Estimated CRCL calculation 36 ml/min; Estimated Glomerular Filt Rate > 60; Glucose 118 mg/dL (65-110); Magnesium 1.6 mg/dL (1.6-2.3); Potassium 3.1 mmol/L (3.4-5.0); Sodium 137 mmol/L (137-145)
[2021-06-21] MEDS: FLUTICASONE PROPIONATE 0.05% NA SPR 16 GM BTL (*BKC) 2 SPRAY NASAL (09:10)
[2021-06-21] MEDS: MAGNESIUM OXIDE 400 MG TABLET PO (09:10)
[2021-06-21] MEDS: POTASSIUM CHLORIDE 20 MEQ TABLET 40 MEQ PO (09:10)
[2021-06-21] MEDS: ATORVASTATIN 40 MG TABLET PO (09:11)
[2021-06-21] MEDS: amLODIPine BESYLATE 5 MG TABLET PO (09:11)
[2021-06-21] MEDS: lisinopriL 20 MG TABLET PO (09:12)
[2021-06-21] MEDS: ASPIRIN 81 MG CHEWABLE TABLET PO (09:12)
[2021-06-21] MEDS: CLOPIDOGREL BISULFATE 75 MG TABLET PO (09:12)
[2021-06-21] MEDS: SODIUM CHLORIDE 0.9% IV 1,000 ML 125 ML IV CONT ×3 (09:15→23:03)
[2021-06-21 11:34] VITALS: BMI 21.2
[2021-06-21 14:00] VITALS: BP 112/52; PULSE 72; RESP 18; TEMP 35.9; O2SAT 98
--- NOTE | 2021-06-21 18:12 | PM.IMPN ---
Progress Note: A&P Assessment and Plan (1) Colitis: Code(s): K52.9 - Noninfective gastroenteritis and colitis, unspecified Status: Acute Assessment and Plan: 06/21/21 18:12 Patient is 80-year-old female was recently discharged from the hospital after being treated for bloody diarrhea and was treated for colitis Patient was treated with Cipro and Flagyl, prior to discharge patient did not have any bloody stool, patient stated see completed her antibiotics 2 days ago and developed abdominal pain and diarrhea, no bloody stool, no fever or chills, complains abdominal pain and nausea, it was suspected the patient may have Colitis and patient was started Cipro and Flagyl and suspicious for C diff and started the patient on oral vancomycin, will place the patient on isolation and will monitor. 06/21 today patient C diff is negative, patient had a small bowel movement formed, patient denies any abdominal pain nausea or vomiting, but currently patient is clear liquid will advanced her diet as tolerated, if remains clinically stable will discharge the patient home tomorrow. (2) Essential hypertension: Code(s): I10 - Essential (primary) hypertension Status: Acute Assessment and Plan: will continue home regimen and monitor (3) Hypothyroidism: Code(s): E03.9 - Hypothyroidism, unspecified Status: Inactive Assessment and Plan: will continue home regimen and monitor (4) HLD (hyperlipidemia): Code(s): E78.5 - Hyperlipidemia, unspecified Status: Acute Assessment and Plan: will continue home regimen and monitor Subjective Date/time seen: 06/21/21 18:12 Patient is 80-year-old female was recently discharged from the hospital after being treated for bloody diarrhea and was treated for colitis Patient was treated with Cipro and Flagyl, prior to discharge patient did not have any bloody stool, patient stated see completed her antibiotics 2 days ago and developed abdominal pain and diarrhea, no bloody stool, no fever or chills, complains abdominal pain and nausea, it was suspected the patient may have Colitis and patient was started Cipro and Flagyl and suspicious for C diff and started the patient on oral vancomycin, will place the patient on isolation and will monitor. 06/21 today patient C diff is negative, patient had a small bowel movement formed, patient denies any abdominal pain nausea or vomiting, but currently patient is clear liquid will advanced her diet as tolerated, if remains clinically stable will discharge the patient home tomorrow. Review of Systems Review of Systems: All systems reviewed & are unremarkable except as noted in HPI and below Exam Narrative: elderly frail Patient is comfortable, NAD HEENT: eyes are clear and none icteric LUNGS: normal respiratory efforts ABD: not distended Lower extremities: no edema SKIN: nonjaundiced Neuro: grossly intact normal speech. Objective Data Vital Signs Vital Signs: Vital Signs - 24 hr 06/20/21 20:53 06/20/21 21:00 06/20/21 22:37 Temperature 97.7 F Pulse Rate 79 91 Respiratory Rate 16 Blood Pressure 140/91 H Pulse Oximetry 96 96 06/21/21 05:19 06/21/21 14:00 Temperature 97.3 F L 96.6 F L Pulse Rate 75 72 Respiratory Rate 16 18 Blood Pressure 136/61 112/52 L Pulse Oximetry 96 98 Intake/Output Intake/Output: Intake & Output 06/18/21 06/19/21 06/20/21 06/21/21 23:59 23:59 23:59 23:59 Intake Total 3890 3970 Output Total 650 1700 Balance 3240 2270 Meds/Results Medications: Active Medications Generic Name Dose Route Start Last Admin Trade Name Freq PRN Reason Stop Dose Admin Amlodipine Besylate 5 mg 06/21/21 09:00 06/21/21 09:11 Amlodipine Besylate 5 Mg Tablet PO 5 mg DAILY KIM Administration Aspirin 81 mg 06/21/21 08:00 06/21/21 09:12 Aspirin 81 Mg Chewable Tablet PO 81 mg DAILY@0800 KIM Administration Atorvastatin Calciu
[2021-06-21 20:43] VITALS: BP 111/90; PULSE 74; RESP 16; TEMP 35.6; O2SAT 98
[2021-06-21 20:44] VITALS: PULSE 74
[2021-06-21] MEDS: METOPROLOL SUCCINATE EXT REL 50 MG TABCR PO (20:44)
[2021-06-21 23:41] VITALS: O2SAT 98
[2021-06-22 05:31] VITALS: BP 145/64; PULSE 67; RESP 16; TEMP 37; O2SAT 100
[2021-06-22] MEDS: LEVOTHYROXINE SODIUM 100 MCG TABLET PO (05:43)
[2021-06-22 05:56] LABS: Hematocrit 31.9 % (37.0-47.0); Hemoglobin 9.9 g/dL (12.0-15.0); Mean Corpuscular Hemoglobin 29.2 pg (26-34); Mean Corpuscular Volume 94.1 fl (80-100); Mean Platelet Volume 11.6 fl (7.4-10.4); Platelet Count Result 174 k/mm3 (150-375); Red Blood Count 3.39 M/mm3 (4.2-5.4); Red Cell Distribution Width 13.7 % (11.5-14.5); White Blood Count 6.7 K/mm3 (4.5-10.0)
[2021-06-22 06:01] LABS: Alanine Aminotransferase 18 U/L (4-35); Albumin Level 2.4 g/dL (3.5-5.1); Alkaline Phosphatase 36 U/L (38-126); Anion Gap 6 mmol/L (8-16); Aspartate Amino Transferase 21 U/L (14-36); Bilirubin,Total 0.4 mg/dL (0.2-1.3); Calcium 7.5 mg/dL (8.4-10.2); Carbon Dioxide 23 mmol/L (22-30); Chloride 108 mmol/L (98-107); Estimated CRCL calculation 45 ml/min; Estimated Glomerular Filt Rate > 60; Glucose 103 mg/dL (65-110); Potassium 3.2 mmol/L (3.4-5.0); Sodium 137 mmol/L (137-145)
[2021-06-22] MEDS: SODIUM CHLORIDE 0.9% IV 1,000 ML 125 ML IV CONT ×2 (08:06→17:39)
[2021-06-22] MEDS: ASPIRIN 81 MG CHEWABLE TABLET PO (08:07)
[2021-06-22] MEDS: MAGNESIUM OXIDE 400 MG TABLET PO (08:08)
[2021-06-22] MEDS: lisinopriL 20 MG TABLET PO (08:08)
[2021-06-22] MEDS: CLOPIDOGREL BISULFATE 75 MG TABLET PO (08:08)
[2021-06-22] MEDS: ATORVASTATIN 40 MG TABLET PO (08:08)
[2021-06-22] MEDS: amLODIPine BESYLATE 5 MG TABLET PO (08:08)
[2021-06-22] MEDS: FLUTICASONE PROPIONATE 0.05% NA SPR 16 GM BTL (*BKC) 2 SPRAY NASAL (08:10)
[2021-06-22 08:15] VITALS: PULSE 67; RESP 16; O2SAT 100
[2021-06-22 08:28] LABS: Blood Urea Nitrogen < 2 mg/dL (7-17)
[2021-06-22 08:37] LABS: Iron 68 ug/dL (37-170)
[2021-06-22 08:46] LABS: Percent Iron Saturation 40 % (20-50)
[2021-06-22 09:54] LABS: Folic Acid > 20.0 ng/mL (2.76->20)
[2021-06-22] MEDS: POTASSIUM CHLORIDE 20 MEQ TABLET 40 MEQ PO ×2 (13:36→17:38)
[2021-06-22 14:01] VITALS: BP 138/65; PULSE 77; RESP 18; TEMP 35.8; O2SAT 98
[2021-06-22 15:26] LABS: Anion Gap 8 mmol/L (8-16); Calcium 7.6 mg/dL (8.4-10.2); Carbon Dioxide 22 mmol/L (22-30); Chloride 106 mmol/L (98-107); Estimated CRCL calculation 45 ml/min; Estimated Glomerular Filt Rate > 60; Glucose 132 mg/dL (65-110); Magnesium 1.5 mg/dL (1.6-2.3); Potassium 2.9 mmol/L (3.4-5.0); Sodium 136 mmol/L (137-145)
[2021-06-22 16:34] LABS: Blood Urea Nitrogen < 2 mg/dL (7-17)
--- NOTE | 2021-06-22 16:45 | PM.IMPN ---
Progress Note: A&P Assessment and Plan (1) Colitis: Code(s): K52.9 - Noninfective gastroenteritis and colitis, unspecified Status: Acute Assessment and Plan: 06/22/21 16:45 Patient is 80-year-old female was recently discharged from the hospital after being treated for bloody diarrhea and was treated for colitis Patient was treated with Cipro and Flagyl, prior to discharge patient did not have any bloody stool, patient stated see completed her antibiotics 2 days ago and developed abdominal pain and diarrhea, no bloody stool, no fever or chills, complains abdominal pain and nausea, it was suspected the patient may have Colitis and patient was started Cipro and Flagyl and suspicious for C diff and started the patient on oral vancomycin, will place the patient on isolation and will monitor. 06/21 today patient C diff is negative, patient had a small bowel movement formed, patient denies any abdominal pain nausea or vomiting, but currently patient is clear liquid will advanced her diet as tolerated, if remains clinically stable will discharge the patient home tomorrow. 06/22 Today patient states feeling better did have a small BM, no abdominal pain nausea or vomiting fever or chills patient potassium is low most likely depleted due to the persistent diarrhea will supplement monitor remains close to normal may discharge today. (2) Essential hypertension: Code(s): I10 - Essential (primary) hypertension Status: Acute Assessment and Plan: will continue home regimen and monitor (3) Hypothyroidism: Code(s): E03.9 - Hypothyroidism, unspecified Status: Inactive Assessment and Plan: will continue home regimen and monitor (4) HLD (hyperlipidemia): Code(s): E78.5 - Hyperlipidemia, unspecified Status: Acute Assessment and Plan: will continue home regimen and monitor Subjective Date/time seen: 06/22/21 16:45 Patient is 80-year-old female was recently discharged from the hospital after being treated for bloody diarrhea and was treated for colitis Patient was treated with Cipro and Flagyl, prior to discharge patient did not have any bloody stool, patient stated see completed her antibiotics 2 days ago and developed abdominal pain and diarrhea, no bloody stool, no fever or chills, complains abdominal pain and nausea, it was suspected the patient may have Colitis and patient was started Cipro and Flagyl and suspicious for C diff and started the patient on oral vancomycin, will place the patient on isolation and will monitor. 06/21 today patient C diff is negative, patient had a small bowel movement formed, patient denies any abdominal pain nausea or vomiting, but currently patient is clear liquid will advanced her diet as tolerated, if remains clinically stable will discharge the patient home tomorrow. 06/22 Today patient states feeling better did have a small BM, no abdominal pain nausea or vomiting fever or chills patient potassium is low most likely depleted due to the persistent diarrhea will supplement monitor remains close to normal may discharge today. Review of Systems Review of Systems: All systems reviewed & are unremarkable except as noted in HPI and below Exam Narrative: elderly frail Patient is comfortable, NAD HEENT: eyes are clear and none icteric LUNGS: normal respiratory efforts ABD: not distended Lower extremities: no edema SKIN: nonjaundiced Neuro: grossly intact normal speech. Objective Data Vital Signs Vital Signs: Vital Signs - 24 hr 06/21/21 20:43 06/21/21 20:44 06/21/21 23:41 Temperature 96.0 F L Pulse Rate 74 74 Respiratory Rate 16 Blood Pressure 111/90 Pulse Oximetry 98 98 06/22/21 05:31 06/22/21 08:15 06/22/21 14:01 Temperature 98.6 F 96.5 F L Pulse Rate 67 67 77 Respiratory Rate 16 16 18 Blood Pressure 145/64 H 138/65 Pulse Oximetry 100 100 98 Intake/Output Intake/Output: Intake & Ou
[2021-06-22 20:24] VITALS: PULSE 74
[2021-06-22] MEDS: METOPROLOL SUCCINATE EXT REL 50 MG TABCR PO (20:24)
[2021-06-22 22:00] VITALS: BP 135/80; PULSE 73; RESP 21; TEMP 36.8; O2SAT 100
[2021-06-23] MEDS: SODIUM CHLORIDE 0.9% IV 1,000 ML 125 ML IV CONT (01:58)
[2021-06-23 06:00] VITALS: BP 147/65; PULSE 65; RESP 20; TEMP 36.1; O2SAT 98
[2021-06-23] MEDS: LEVOTHYROXINE SODIUM 100 MCG TABLET PO (06:07)
[2021-06-23 06:14] LABS: Hematocrit 31.7 % (37.0-47.0); Hemoglobin 10.3 g/dL (12.0-15.0); Mean Corpuscular HGB Conc 32.5 g/dl (32-36); Mean Corpuscular Hemoglobin 29.6 pg (26-34); Mean Corpuscular Volume 91.1 fl (80-100); Mean Platelet Volume 11.3 fl (7.4-10.4); Platelet Count Result 206 k/mm3 (150-375); Red Blood Count 3.48 M/mm3 (4.2-5.4); Red Cell Distribution Width 13.5 % (11.5-14.5); White Blood Count 6.6 K/mm3 (4.5-10.0)
[2021-06-23 06:29] LABS: Alanine Aminotransferase 19 U/L (4-35); Albumin Level 2.6 g/dL (3.5-5.1); Alkaline Phosphatase 41 U/L (38-126); Anion Gap 6 mmol/L (8-16); Aspartate Amino Transferase 21 U/L (14-36); Bilirubin,Total 0.4 mg/dL (0.2-1.3); Calcium 7.7 mg/dL (8.4-10.2); Carbon Dioxide 23 mmol/L (22-30); Chloride 108 mmol/L (98-107); Estimated CRCL calculation 45 ml/min; Estimated Glomerular Filt Rate > 60; Glucose 96 mg/dL (65-110); Potassium 3.6 mmol/L (3.4-5.0); Sodium 137 mmol/L (137-145)
[2021-06-23 06:41] LABS: Blood Urea Nitrogen < 2 mg/dL (7-17)
[2021-06-23] MEDS: ASPIRIN 81 MG CHEWABLE TABLET PO (08:57)
[2021-06-23] MEDS: ATORVASTATIN 40 MG TABLET PO (08:57)
[2021-06-23] MEDS: lisinopriL 20 MG TABLET PO (08:57)
[2021-06-23] MEDS: CLOPIDOGREL BISULFATE 75 MG TABLET PO (08:57)
[2021-06-23] MEDS: amLODIPine BESYLATE 5 MG TABLET PO (08:57)
[2021-06-23] MEDS: FLUTICASONE PROPIONATE 0.05% NA SPR 16 GM BTL (*BKC) 2 SPRAY NASAL (08:57)
[2021-06-23] MEDS: MAGNESIUM OXIDE 400 MG TABLET PO (09:00)
--- NOTE | 2021-06-23 12:53 | PM.DS ---
DS: Admitting Diagnosis Admitting Diagnosis acute colitis DS: Discharge Diagnosis Discharge Diagnosis (1) Colitis: Code(s): K52.9 - Noninfective gastroenteritis and colitis, unspecified Status: Acute Assessment and Plan: c diff negative Tx with Zosyn Home with 7 more doses of Augmentin 875 bid (2) Essential hypertension: Code(s): I10 - Essential (primary) hypertension Status: Acute Assessment and Plan: will continue home regimen (3) Hypokalemia: Code(s): E87.6 - Hypokalemia Status: Acute Assessment and Plan: Resolved DS: Summary Hospital Course Reason for hospitalization: abd pain and diarrhea Hospital Course: Admitted with abd pain and diarreha, no bleeding or n/v, 2 days after completing cipro and flagyl for colitis. CT with Diffuse wall thickening of the colon, worst from the splenic flexure through the rectum, consistent with colitis. Improved with bowel rest and IV Zosyn. Tolerated small meals and bland foods. Pain resolved. Diarrhea resolved. Stool soft but formed on day of discharge. Up and about independently. Status at Discharge Functional status at discharge: independent ambulation Overall status at discharge: patient is progressing back to baseline Time Spent with Patient Time attestation: Total time spent providing and/or coordinating discharge services: Exam Narrative: Patient is comfortable, NAD HEENT: eyes are clear and none icteric LUNGS: normal respiratory efforts ABD: not distended, BS+, nontender Lower extremities: no edema SKIN: nonjaundiced Neuro: grossly intact normal speech. Psych: A/o x 4 DS: Data Data Completed and Pending Labs on day of discharge: Labs from last 24 hours 06/23/21 06/23/21 06/22/21 06:07 06:07 14:47 WBC 6.6 RBC 3.48 L Hgb 10.3 L Hct 31.7 L MCV 91.1 MCH 29.6 MCHC 32.5 RDW 13.5 Plt Count 206 MPV 11.3 H Sodium 137 136 L Potassium 3.6 2.9 L Chloride 108 H 106 Carbon Dioxide 23 22 Anion Gap 6 L 8 BUN < 2 L < 2 L Creatinine 0.70 0.70 Estim Creat Clear Calc 45 45 Estimated GFR > 60 > 60 Glucose 96 132 H Calcium 7.7 L 7.6 L Magnesium 1.5 L Total Bilirubin 0.4 AST 21 ALT 19 Alkaline Phosphatase 41 Total Protein 5.0 L Albumin 2.6 L Discharge Plan Discharge Discharging Clinician: Kervin Granados Patient Disposition: Home, Self-Care Activity: no straining and no driving Diet: heart healthy Discharge Instructions: Take a probiotic daily for at least one month (Align, Micha Colon Zachary, or equivalent). Eat bland foods that are easy to digest. Eat six small meals daily instead of three larger meals. Keep appt with GI specialist in July. Patient Instructions: Antibiotic Form, Sepsis (GEN), Safe Use of Anticoagulants (DC), Colitis (ED) Stand Alone Forms: General Discharge Information Follow-up/Referrals: Isabel,Aravind Ureña MD [Primary Care Provider] - 1 Week Discharge Medications: New amoxicillin-pot clavulanate [Augmentin] 875-125 mg tablet 1 tablet PO BIDWM Qty: 7 RF: 0 Continued metoprolol succinate 50 mg tablet extended release 24 hr 50 mg PO HS RF: 0 lisinopril 20 mg tablet 20 mg PO DAILY RF: 0 levothyroxine 100 mcg tablet 100 mcg PO DAILY RF: 0 fluticasone propionate 50 mcg/actuation spray,suspension 2 spray INTRANASAL DAILY RF: 0 Baby Aspirin 81 mg 81 mg PO DAILY RF: 0 Osteo Bi-Flex 1 tablet PO DAILY RF: 0 clopidogrel [Plavix] 75 mg tablet 75 mg PO DAILY Qty: 28 RF: 0 atorvastatin [Lipitor] 40 mg tablet 40 mg PO DAILY Qty: 30 RF: 0 Norvasc 5 mg PO DAILY RF: 0 Date of admission: 06/20/21 10:52 Primary Care Provider: IsabelAravind Admitting Provider: Ryan Lopez Attending physician on admission: Ryan Lopez Condition: Stable Quality VTE Prophylaxis VTE prophylaxis: mec
== END 2021-06-23 13:30 | disposition home or self-care (01) ==
LOC: ANHED 09:41 → ANH3MED 14:17
PROVIDERS: Admitting Provider Family Medicine; Emergency Provider General Practice; PCP Family Medicine Sports Medicine; Visit Provider Internal Medicine
DX: K52.9 Noninfective gastroenteritis and colitis, unspecified (principal); I10 Essential (primary) hypertension; E87.6 Hypokalemia; R11.0 Nausea; E03.9 Hypothyroidism, unspecified; E78.5 Hyperlipidemia, unspecified; R53.1 Weakness; M81.0 Age-related osteoporosis without current pathological fracture; J30.2 Other seasonal allergic rhinitis; Z79.899 Other long term (current) drug therapy; Z79.890 Hormone replacement therapy; Z79.82 Long term (current) use of aspirin; Z85.3 Personal history of malignant neoplasm of breast; Z85.850 Personal history of malignant neoplasm of thyroid
CPT/HCPCS: 36415; 74177; 80048; 80053; 81001; 82607; 82746; 83540; 83550; 83605; 83690; 83735; 85025; 85027; 87324; 96361; 96365; 96366; 96375; 99285; A9270; G0378; J2543; J3480; J7030; J7120; Q9967

== ENCOUNTER 2021-06-30 02:08 | Emergency (ER) | payer BC, SELFPAY ==
--- NOTE | ~2021-06-30 | CT_ITS ---
EXAMINATION: CT abdomen pelvis w con INDICATION: Abdominal pain TECHNIQUE: Computed tomographic images of the abdomen and pelvis were obtained after the administrati on of 100 cc of Omnipaque 350 intravenous contrast. The dose-length product (DLP) was 188.36 mGy-cm. Automated exposure control and iterative reconstruction technique were employed. COMPARISON: 06/20/2021 FINDINGS: Minimal dependent atelectasis is present in the lung bases. The heart size is normal. The l iver, spleen, pancreas, gallbladder, and adrenal glands are normal. The kidneys are unremarkable. The re is calcified atherosclerosis of the aorta and many of the other arteries. No pathologically enlarg ed abdominal or pelvic lymph nodes are identified. Colonic wall thickening persists but has improved. There is no free intraperitoneal gas or evidence of bowel obstruction. There is mild lumbar spondylo sis. IMPRESSION: 1. Findings consistent with resolving colitis. Reviewed, dictated and finalized at location A.
[2021-06-30 02:16] VITALS: BP 107/59; PULSE 92; RESP 18; TEMP 36.4; O2SAT 98
[2021-06-30 04:32] LABS: Basophils Absolute Auto 0.1 K/mm3 (0.0-0.1); Basophils Percent Auto 0.4 % (0.2-1.2); Eosinophils Absolute Auto 0.1 K/mm3 (0-0.3); Eosinophils Percent Auto 0.4 % (0-4.4); Hematocrit 39.7 % (37.0-47.0); Hemoglobin 12.6 g/dL (12.0-15.0); Immature Granulocyte Absolute 0.06 K/mm3 (0.00-0.031); Immature Granulocyte Percent A 0.4 % (0-0.5); Lymphocytes Absolute Auto 1.83 K/mm3 (0.9-3.2); Mean Corpuscular HGB Conc 31.7 g/dl (32-36); Mean Corpuscular Hemoglobin 29.3 pg (26-34); Mean Corpuscular Volume 92.3 fl (80-100); Mean Platelet Volume 10.7 fl (7.4-10.4); Monocytes Absolute Auto 0.7 K/mm3 (0.1-0.6); Monocytes Percent Auto 4.5 % (2.6-8.5); Neutrophils Absolute Auto 13.8 K/mm3 (1.3-6.7); Neutrophils Percent Auto 83.3 % (45.5-73.1); Platelet Count Result 293 k/mm3 (150-375); Red Cell Distribution Width 14.3 % (11.5-14.5); White Blood Count 16.6 K/mm3 (4.5-10.0)
[2021-06-30 04:55] LABS: Alanine Aminotransferase 24 U/L (4-35); Alkaline Phosphatase 69 U/L (38-126); Anion Gap 8 mmol/L (8-16); Aspartate Amino Transferase 28 U/L (14-36); Blood Urea Nitrogen 11 mg/dL (7-17); Calcium 9.3 mg/dL (8.4-10.2); Carbon Dioxide 26 mmol/L (22-30); Chloride 103 mmol/L (98-107); Estimated Glomerular Filt Rate > 60; Glucose 117 mg/dL (65-110); Lipase 29 U/L (23-300); Potassium 3.8 mmol/L (3.4-5.0); Sodium 137 mmol/L (137-145)
[2021-06-30] MEDS: SODIUM CHLORIDE 0.9% IV 1,000 ML 999 ML IV CONT (05:12)
--- NOTE | 2021-06-30 06:04 | ED.GENADULT ---
HPI - General Adult General Chief complaint: Nausea/Vomiting/Diarrhea Stated complaint: diarrhea & weakness Time Seen by Provider: 06/30/21 04:50 History of Present Illness HPI narrative: Patient 72-year-old female presents emergency department chief complaint of diarrhea and abdominal pain. Patient reports that she was recently in the hospital after she had a episode of colitis and was treated with antibiotics. The patient reports she was negative for C. difficile colitis at that time but reports that she had significant diarrhea and was treated with antibiotics. The patient states she went home was doing well and then started having diarrhea today. The patient denies fever denies blood in her stool. The patient states that since she is arrived in the emergency department she has not had any further diarrhea but is concerned that it is going to come back. Patient denies vomiting Related Data Home Medications Medication Instructions Recorded Confirmed Baby Aspirin 81 mg PO DAILY 05/22/21 06/20/21 Osteo Bi-Flex 1 tablet PO DAILY 05/22/21 06/20/21 fluticasone propionate 2 spray INTRANASAL DAILY 05/22/21 06/20/21 levothyroxine 100 mcg PO DAILY 05/22/21 06/20/21 lisinopril 20 mg PO DAILY 05/22/21 06/20/21 metoprolol succinate 50 mg PO HS 05/22/21 06/20/21 Norvasc 5 mg PO DAILY 06/20/21 06/20/21 Allergies Allergy/AdvReac Type Severity Reaction Status Date / Time ibuprofen Allergy Severe FACIAL Verified 06/30/21 05:13 SWELLING mold Allergy Severe CARRIES Verified 06/30/21 05:13 EPIPEN diclofenac Allergy Intermediate Itching Verified 06/30/21 05:13 codeine AdvReac Mild Headache Verified 06/30/21 05:13 Review of Systems Review of Systems: A 10 system review of systems was completed on the patient and is negative except for what is stated in the HPI. Nursing and ancillary documentation was reviewed. [facility] Past Medical History Medical History HLD (hyperlipidemia) HX: breast cancer Hypothyroidism Osteoporosis Seasonal allergies Thyroid cancer Surgical History Surgical History H/O mastectomy Family History Family History Father Lung cancer Heart disease Sibling Heart attack Son Lymphoma, Onset Age: 31 Mother Heart attack Cerebrovascular accident Social History Social History Smoking status: Never smoker Second hand tobacco smoke exposure: No Alcohol intake: never Drinks per week: 1 Substance use: never Gender identity (if verbalized by the patient): Female Sexual Orientation (if Verbalized by the Patient): Straight or Heterosexual Spiritual care concerns: No Exam Narrative: GENERAL: Well-appearing, well-nourished, and in no acute distress. HEAD: Normocephalic, atraumatic. EYES: PERRLA and EOMI. ENT: Nares clear, no rhinorrhea or epistaxis. Mucous membranes moist. NECK: Supple. CHEST: Clear to auscultation. No respiratory distress. HEART: Regular rate and rhythm. No murmur heard. Normal peripheral pulses. ABDOMEN: Soft, diffuse mild tenderness, nondistended, normal active bowel sounds. EXTREMITIES: Normal range of motion. No edema. SKIN: Warm, dry, no rash. NEURO: No focal deficits. Alert and oriented x3. PSYCH: Normal mood and affect. Course Course Emergency Course: CT scan of the abdomen pelvis shows evidence of wall thickening of the sigmoid colon and rectum consistent with mild distal colitis It was discussed with the patient the options since she is recently been admitted to the hospital the patient states she is feeling much better at this time and would opt to be treated as an outpatient. The patient's course was reviewed she was initially treated with Cipro and Flagyl and failed that treatment and the patient was s
[2021-06-30 06:25] VITALS: BP 135/64; PULSE 77
[2021-06-30 06:26] VITALS: BP 134/68; PULSE 78
[2021-06-30 06:27] VITALS: BP 142/75; PULSE 86
[2021-06-30 06:29] LABS: Lactic Acid Reflex 0.9 mmol/L (0.7-2.1)
[2021-06-30 06:31] VITALS: BP 135/64; PULSE 88; RESP 18; O2SAT 100
[2021-06-30 06:33] LABS: Add Urine Microscopic? YES; Appearance Urine Clear (Clear); Bacteria Urine Trace /hpf; Bilirubin Urine Negative (Negative); Blood Urine Negative (Negative); Color Urine Straw (Yellow); Glucose Urine UA Negative (Negative); Ketones Urine Negative (Negative); Leukocyte Esterase Ur 3+ LEU/UL (Negative); Mucus Urine Rare /lpf; Nitrate Urine Negative (Negative); Protein Urine Negative (Negative); RBC Urine 0-2 /hpf (0-2); Specific Grav Ur 1.043 (1.001-1.035); Urobilinogen Urine Negative mg/dL (<2.0)
[2021-06-30] MEDS: AMOXICILLIN/CLAVULANATE K 875-125 MG TAB 1 TABLET PO (07:04)
== END 2021-06-30 07:11 | disposition home or self-care (01) ==
PROVIDERS: Emergency Provider Emergency Medicine; PCP Family Medicine Sports Medicine
DX: K52.9 Noninfective gastroenteritis and colitis, unspecified (principal); E78.5 Hyperlipidemia, unspecified; M81.0 Age-related osteoporosis without current pathological fracture; Z85.850 Personal history of malignant neoplasm of thyroid; Z85.3 Personal history of malignant neoplasm of breast; Z90.10 Acquired absence of unspecified breast and nipple; Z79.82 Long term (current) use of aspirin
CPT/HCPCS: 36415; 74177; 80053; 81001; 83605; 83690; 85025; 96360; 99284; A9270; J7030; Q9967